=== PATIENT | male | born 1960 | race Caucasian/White ===

== ENCOUNTER 2021-07-20 21:02 | Emergency (ER) | payer SELFPAY ==
[~2021-07-20] VITALS: Ht 182.9 cm; Wt 86.2 kg
[2021-07-20 21:05] VITALS: BP 150/78
== END 2021-07-20 22:39 ==
LOC: ER 21:02
DX: S86.912A Strain of unspecified muscle(s) and tendon(s) at lower leg level, left leg, initial encounter (principal); X58.XXXA Exposure to other specified factors, initial encounter; Y93.89 Activity, other specified; Y92.9 Unspecified place or not applicable; Y99.8 Other external cause status
CPT/HCPCS: 73700